=== PATIENT | female | born 2005 | race African-American/Black ===

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

== ENCOUNTER 2024-01-09 19:26 | Outpatient (REF) | payer MEDICAID, SELFPAY ==
--- OUTSIDE RECORDS SUMMARY | 2024-01-09 19:28 | XMS_ITS | Encounter Summary ---
Author Organization [facility] Address [address] [place] [address] Care Team Providers Care Medical Doctor Nuclear Medicine Name Role Phone Eli Auguste MD Primary Care Provider Encounter Details Date Type Department Care Team (Late st Contact Info) Description 06/06/[address] [facility] [place] [facility] Pathology & Laboratory Medicine - [address] [address] Outr Resulting Lab, Provider Social History Tobacco Use Types Packs/Day Years Used Date Smoking Tobacco: Never Assessed Sex and Gender Information Value Date Recorded Sex Assigned at Not on file Gender Identity Not on file Sexual Orientation Not on file documented as of this encounter Plan of Treatment Not on file documented as of this encounter Procedures Procedure Name Priority Date/Time Associated Diagnosis Comments ZZCOVID-19 TEST [facility] PCR Today 06/06/2021 11:39 EST COVID-19 TESTING Routine 06/06/2021 11:3 9 EST documented in this encounter Results * COVID-19 TEST [facility] PCR (06/06/2021 11:39 EST) Swab 06/06/2021 11:3 9 EST 06/06/2021 22:08 EST Provider Outr Resulting Lab MICROBIOLOGY - GENERAL ORDERABLES [facility] [address] [place] [address] * COVID-19 TESTING (06/06/2021 11:39 EST) COVID-19 rt-PCR Result Negative Negative 06/07/2021 13:59 EST [facility] Comment: This test has not been FDA cleared or approved. This test has been authorized by FDA under an EUA for use by authorized laboratories. This test has been authorized only for detection of nucleic acid from 2019-nCoV, not for any other viruses or pathogens. This test is only authorized for the duration of the declaration that circumstances exist justifying the authorization of emergency use of in vitro diagnostic tests for detection and/or diagnosis of 2019-nCoV under section 564(b)(1) of Act, 21 U.S.C ?? 360bbb-3(b) (1), unless the authorization is terminated or revoked sooner. Negative results do not preclude 2019-nCoV infection and should not be used as the sole basis for treatment or other patient management decisions. Negative results must be combined with clinical observations, patient history, and epidemiological information. Testing was performed using the candie SARS-CoV-2 assay ([employer] on the Candie 6800 System Performing Lab Candie 6800 [facility] 06/07/2021 13:59 EST [facility] Swab 06/06/2021 11:3 9 EST 06/06/2021 22:08 EST Provider Outr Resulting Lab MICROBIOLOGY - GENERAL ORDERABLES [facility] [address] [place] [address] documented in this encounter Visit Diagnoses Not on filedocumented in this encounter Care Teams Medical Doctor Nuclear Medicine Relationship Specialty Start Date End Date Eli Auguste MD [address] [place] [address] [place] [address] PCP - General Pediatrics - Primary Care 02/13/21 documented as of this encounter
--- OUTSIDE RECORDS SUMMARY | 2024-01-09 19:28 | XMS_ITS | Encounter Summary ---
Author Organization [facility] Address [address] [place] [address] Care Team Providers Care Director Card Name Role Phone Eli Auguste MD Primary Care Provider Reason for Visit * Reason Comments Procedure excision on back Encounter Details Date Type Department Care Team (Late st Contact Info) Description 07/18/2021 10:15 EST Office Visit [facility] Dermatology 3rd [address] [id number] Jose Davila MD [address] [place] [address], [address] [place] [address] Recurrent nevus of back (Primary Dx) Social History Tobacco Use Types Packs/Day Years Used Date Smoking Tobacco: Never Sex and Gender Information Value Date Recorded Sex Assigned at Not on file Gender Identity Not on file Sexual Orientation Not on file documented as of this encounter Patient Instructions * Patient Instructions* Marilou Vences MD - 07/18/2021 10:[address] [facility] EXCISIONAL WOUND CARE INSTRUCTIONS The DRESSING/BANDAID should remain in place for 24 hours. You may shower or bathe after 24 hours; remove the bandage and replace it after the shower. DISCOMFORT: Expect some discomfort. Extra-Strength Tylenol, taken as directed by the robotics specialist, will help relieve pain. If the pain is severe please call the office. BLEEDING: You may notice some blood on the edges of the dressing the first day - this is NORMAL. Ifthe bleeding soaks through the dressing, remove the dressing, and apply firm, steady pressure with a moist clean wash cloth for fifteen minutes. If the bleeding stops, redress the wound, if not, callour office at . ACTIVITY: Relax and limit your physical activity for the first 48 hours after surgery. Also, if thesurgery was on the face or scalp, keep your head elevated. Your provider may ask you to limit activity for a longer period of time. APPEARANCE: There may be swelling and bruising around the wound, especially near the eyes. Some redness is normal, but the wound should not be red, hot and tender. If the wound becomes increasingly inflamed, warm, or drains pus, please call our office. WOUND CARE: ?? Wash hands with soap and water before changing the dressing. ?? Change the dressing daily and when it becomes wet. Clean the wound daily with mild soap and water. You may gently loosen any crusts with a cotton swab. The wound may be slightly tender and may bleed a small amount. A small amount of discharge is normal. Apply a thin layer of sterile petroleum jelly over the wound. Cover the wound with a Telfa (non-stick) dressing or bandage. It is important to keep the wound covered. If your sutures require removal, you will receive specific instructions regarding when and where tohave them removed. CONTACT THE OFFICE IF YOU EXPERIENCE: ?? increased redness ?? warmth to touch ?? increased pain ?? drainage with a foul odor ?? rapid swelling of the wound ?? fever or chills Please call our office or . documented in this encounter Progress Notes * Marilou Vences MD - 07/18/2021 1015 EST Images from the original note were not included. LINEAR EXCISION PROCEDURE NOTE PATIENT INFORMATION: Jocelyn Conner 2005 DATE OF PROCEDURE: 07/18/2021 SURGEON: Jose Davila MD DRY CANS BACK TENDER: Marilou Vences MD PREOPERATIVE DIAGNOSIS: recurrent nevus LOCATION: Right upper back LESION SIZE: 0.5 cm x 0.5 cm MARGINS PER SIDE: 0.1 cm TOTAL EXCISION DIAMETER: 0.7 cm x 0.7 cm INDICATIONS: The indication, risks, benefits and alternatives to this procedure were discussed in detail with the patient and all questions were answered. The patient had no contraindications to surgery with local anesthesia. Informed consent was obtained in writing. PROCEDURE: Patient position: prone Anesthesia: 1% lidocaine with epinephrine 1:100,000 buffered with 8.4% NaHCO3 Prep: Chlorhexidine The patient was brought to the operative suite. The lesion was identified, prepped and draped in the usual sterile fashion. Following complete anesthesia, the skin was incised in a fusiform fashion to the level of the subcutis with a number 15 surgical blade. The wound was undermined in all directions with care to avoid functionally important nerves and vessels. Hemostasis was achieved with spot electrocoagulation. The wound edges were approximated with 4.0 Monocryl (poliglecaprone 25) buried interrupted sutures at the level of the dermis and subcutis. The epidermis was approximated with 4.0 Prolene (polypropylene). The final wound length was 3.2 centimeters. The wound edges were cleansed with peroxide and a sterile pressure dressing was applied over telfa and petrolatum. Verbal and written wound care instructions were given. The patient tolerated the procedure well and left the operating suite in excellent condition. The surgical specimen was submitted to pathology for histologic evaluation. POSTOPERATIVE DIAGNOSIS: recurrent nevus of right upper back FINAL PROCEDURE: Excision and Linear Repair BLOOD LOSS: minimal OPERATIVE TIME: 45 minutes COMPLICATIONS: none NOTE: none Marilou Vences MD, DENIA, MS PGY-2 Dermatology Pager [phone] 07/18/21 12:05 Attestation Statement: I saw and examined the patient with the resident/fellow. I agree with the findings and plan of care documented in the resident's/fellow's note. I was present for the entire procedure. Jose Davila MD Dermatology [facility] * Maral George MA - 07/18/2021 1015 EST Patient Education Topic: Wound Care Method: Demonstration and Handout Taught to: Family and Patient Barriers: None Outcomes: requires assistance and verbalized understanding Signature: MARAL GEORGE MA 07/18/2021 11:07 documented in this encounter Miscellaneous Notes * Result Encounter Note - Jose Davila MD - 07/18/2021 1015 EST Shimon Cheri, can you let Jocelyn know that her mole was benign and appears completely removed with the excision, no need for further treatment unless new concerns arise. * Result Encounter Note - Jose Alejandro Thurman MA - 07/18/2021 1015 EST Called patient and relayed excision results. Patient verbalized a good understanding and had no further questions at the time of the call. JOSE ALEJANDRO THURMAN MA 07/20/2021 13:02 documented in this encounter Plan of Treatment Not on file documented as of this encounter Procedures Procedure Name Priority Date/Time Associated Diagnosis Comments SURGICAL PATHOLOGY Routine 07/18/2021 11 :01 EST Recurrent nevus of back documented in this encounter Results * SURGICAL PATHOLOGY (07/18/2021 11:01 EST) Note to Patient The following pathology results have been interpreted by your pathologist and may be available to you before your health provider has had the opportunity to review them. Please allow time for your provider to receive these results and explore management options, if applicable. 07/20/2021 10:47 [facility] Final Diagnosis A. SKIN OF BACK, RIGHT UPPER, EXCISION: - Intradermal nevus, completely excised. 07/20/2021 10:47 [facility] Attestation By the signature below, the attending physician certifies that they have 1) personally conducted a gross and/or microscopic examination of the described specimen(s), and/or personally interpreted the results of laboratory testing of the described specimen(s), and 2) personally rendered or confirmed the above diagnosis. 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 Received in formalin labelled with proper patient identification (initials B, M) and right upper back is an unoriented excision of giles-pink skin (2.0 x 0.8 cm, excised to a depth of 0.7 cm). At the center of the ellipse is a giles-brown smooth round skin lesion 0.3 cm in greatest dimension. The specimen is inked, serially sectioned and submitted entirely as tips, reverse en face in A1 and 4 central sections in A2-A3. NELL GLASS(ASCP) 07/18/2021 15:05 07/20/2021 10:47 [facility] Performing Lab [facility] 07/20/2021 10:47 [facility] Scanned Images 07/20/2021 10:47 [facility] Tissue TISSUE SPECIMEN FROM SKIN / Unknown Collection, Other / Unknown 07/18/2021 11:01 EST 07/18/2021 14:14 EST Jose Davila MD PATHOLOGY ORDERABLES Performing Organization Address City/State/[facility] Co de Phone Number [facility] [address] [place] [address] documented in this encounter Visit Diagnoses Diagnosis Recurrent nevus of back- Primary Benign neoplasm of skin of trunk, except scrotum documented in this encounter Care Teams Director Card Relationship Specialty Start Date End Date Eli Auguste MD [address] [place] [id number] PCP - General Pediatrics - Primary Care 02/13/21 documented as of this encounter
--- OUTSIDE RECORDS SUMMARY | 2024-01-09 19:28 | XMS_ITS | Encounter Summary ---
Author Organization [facility] Address [address] [place] [address] Care Team Providers Care Panel Cutter Name Role Phone Alondra Rosales MD Primary Care Provider [phone] Eli Auguste MD Primary Care Provider [phone] Reason for Visit * Reason Onset Date Comments Appointment Related 02/03/2021 Encounter Details Date Type Department Care Team (Late st Contact Info) Description 02/03/2021 Telephone [facility]- [address] [address] Martinez Garcia MD [address] [place] [address], [address] [place] [phone] Appointment Related Social History Tobacco Use Types Packs/Day Years Used Date Smoking Tobacco: Never Assessed Sex and Gender Information Value Date Recorded Sex Assigned at Not on file Gender Identity Not on file Sexual Orientation Not on file documented as of this encounter Miscellaneous Notes * Telephone Encounter - Marguerite Montiel - 02/03/2021 1820 EDT Rimal PAS Message: Jocelyn called to cancel appointment with Martinez Garcia MD on 02/13 at 14:20 due to schedule conflict. Patient would like a call back to reschedule? Yes. documented in this encounter Plan of Treatment Not on file documented as of this encounter Visit Diagnoses Not on filedocumented in this encounter Care Teams Panel Cutter Relationship Specialty Start Date End Date Alondra Rosales MD [address] [place] [address] PCP - General 10/14/09 02/12/21 Eli Auguste MD [address] [place] [phone] PCP - General Pediatrics - Primary Care 02/13/21 documented as of this encounter
--- OUTSIDE RECORDS SUMMARY | 2024-01-09 19:28 | XMS_ITS | Continuity of Care Document ---
Author Organization [facility] Address [address] [place] [address] Care Team Providers Care Residential Building Inspector Name Role Phone Eli Auguste Primary Care Physician [phone] Encounter [facility] Date(s): 06/04/23 - 06/04/[address] [address] Discharge Disposition: Home or Self Care Attending Physician: Eli Auguste MD Admitting Physician: Eli Auguste MD Referring Physician: Eli Auguste MD Referring Physician: Ana Potter NP Allergies, Adverse Reactions, Alerts No Known Allergies Assessment and Plan Future Appointments Future Scheduled Tests Laboratory* Comprehensive Metabolic Panel 06/05/23 * Thyroid Stimulating Hormone 06/05/23 * Celiac Disease Comp Loíza STRATTON 06/05/23 * CBC w/o Diff 06/05/23 * Free T4 06/05/23 Immunizations Given and Recorded Vaccine Date Status Refusal Reason SARS-CoV-2 (COVID-19) mRNA BNT-162b2 vax 02/22/21 Recorded SARS-CoV-2 (COVID-19) mRNA BNT-162b2 vax 02/01/21 Recorded human papillomavirus vaccine 07/05/20 Recorded meningococcal ACWY, unspecified formulat 07/01/20 Recorded meningococcal ACWY, unspecified formulat 01/20/18 Recorded tetanus/diphth/pertuss (Tdap) adult/adol 09/15/15 Recorded diphtheria/tetanus/pertussis,acel/polio 06/09/09 R ecorded varicella virus vaccine 06/10/08 Recorded measles/mumps/rubella virus vaccine 06/10/08 Recor ded haemophilus b conjugate (PRP-T) vaccine 09/17/05 R ecorded haemophilus b conjugate (PRP-T) vaccine 04 R ecorded haemophilus b conjugate (PRP-T) vaccine 04 R ecorded haemophilus b conjugate (PRP-T) vaccine 04 R ecorded measles/mumps/rubella/varicella vaccine 07/02/05 R ecorded pneumococcal 7-valent vaccine 07/02/05 Recorded pneumococcal 7-valent vaccine 04/19/05 Recorded pneumococcal 7-valent vaccine 04 Recorded pneumococcal 7-valent vaccine 04 Recorded diphth/tetanus/pertussis,acel/hepB/polio 04 Recorded diphth/tetanus/pertussis,acel/hepB/polio 04 Recorded diphth/tetanus/pertussis,acel/hepB/polio 04 Recorded Medications cetirizine 10 mg oral tablet 10 mg = 1 tab, Oral, Daily, 0 Refill(s) Start Date: 10/26/21 Status: Ordered Flonase Allergy Relief 50 mcg/inh nasal spray 1 sprays, Nasal, Daily, shake well before using, # 9.9 mL, 0 Refill(s), Pharmacy: [facility], 37.55, kg, 06/04/23 10:30:00 EST, Weight Dosing Start Date: 06/04/23 Status: Ordered ondansetron 4 mg oral tablet, disintegrating 4 mg = 1 tab, Oral, every 8 hr, PRN as needed for nausea/vomiting, # 30 tab, 0 Refill(s), Pharmacy:[facility], 37.55, kg, 06/04/23 10:30:00 EST, Weight Dosing Start Date: 06/04/23 Status: Ordered Xulane 150 mcg-35 mcg/24 hr transdermal film, extended release 1 patches, Topical, every week, apply a new patch weekly for 3 weeks, remove for 1 week, then repeat cycle, # 9 EA, 4 Refill(s), Pharmacy: [facility] Start Date: 04/19/22 Status: Ordered Problem List Condition Confirmation Course Effective Dates Status H ealth Status Informant Acute urticaria Confirmed 09/09/20 Active Anxiety Confirmed 09/25/18 Active Chronic idiopathic urticaria Confirmed 06/06/21 Active 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 History of SARS-CoV-2 Confirmed 01/03/21 Active Iron deficiency Confirmed 06/06/21 Active Mild persistent asthma Confirmed 09/09/20 Active Mixed anxiety and depressive disorder Confirmed 09/09/20 Active Encounter for IUD insertion Confirmed Active Seasonal allergy Confirmed 06/06/21 Active Results Laboratory List Name Date SARS-CoV-2 (COVID-19)/Flu/RSV ([facility] ) (COVID-19/Flu/RSV ([facility])) 06/04/23 Most recent to oldest [Reference Range]: 1 SARS-CoV-2(Covid19)PCR([facility] COVFLURSV) [Negative] Negative (06/04/23 11:50 AM) Flu A ([facility] COVFLURSV) [Negative] Nega tive (06/04/23 11:50 AM) RSV ([facility] COVFLURSV) [Negative] Positi ve *ABN* (06/04/23 11:50 AM) Flu B ([facility] COVFLURSV) [Negative] Nega tive (06/04/23 11:50 AM) Orders for Microbiology Reports Name Date Throat Culture 06/04/23 Microbiology Reports TEST:Throat Culture STATUS:Order in Progress BODY SITE: SOURCE:Throat COLLECTED DATE/TIME:06/04/23 2:13 PM PRELIMINARY REPORT [employer] B strep recovered Social History Social History Type Response Tobacco Never tobacco user T obacco Use:. Sex Female Patient Care team information Care Team Personnel Name: Eli Auguste MD Position: Physician Member Role: Informed Provider Address: Address: [address] Care Team Related Persons Name: DECLINED, DECLINED
--- OUTSIDE RECORDS SUMMARY | 2024-01-09 19:28 | XMS_ITS | Referral Summary ---
Author Organization [facility] Address [address] [place] [address] Care Team Providers Care Wheel Mill Operator Name Role Phone Eli Auguste MD Primary Care Provider [phone] Allergies No known active allergies Medications Medication Sig Dispensed Refills Start Date End Date Status ferrous sulfate (IRON ORAL) Take by mouth daily. Active ergocalciferol, vitamin D2, (VITAMIN D ORAL) Take by mouth daily. Active spironolactone (ALDACTONE) 50 mg tabletIndications:Acn e vulgaris Take 1 Tablet by mouth at bedtime. 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
--- OUTSIDE RECORDS SUMMARY | 2024-01-09 19:28 | XMS_ITS | Continuity of Care Document ---
Author Organization [facility] Address [address] [place] [address] Care Team Providers Care Global Supply Chain Vice President Name Role Phone Shanti Koroma Primary Care Physician Encounter [facility] Date(s): 11/28/23 - 11/28/23 [facility] [address] [place] [address] Discharge Disposition: Home or Self Care Attending Physician: Shanti Koroma MD Admitting Physician: Shanti Koroma MD Referring Physician: Shanti Koroma MD Allergies, Adverse Reactions, Alerts No Known Medication Allergies Substance Reaction Severity Status Seasonal Moderate Active Assessment and Plan Future Appointments Immunizations Given and Recorded Vaccine Date Status [...] diphth/tetanus/pertussis,acel/hepB/polio 04 Recorded diphth/tetanus/pertussis,acel/hepB/polio 04 Recorded Medications cholecalciferol 2000 intl units oral capsule 50 mcg 1 cap, Oral, Daily, # 90 cap, 0 Refill(s), Pharmacy: [email or web address], 149.8, cm, 06/13/23 10:56:00 EST, Height, 37.5, kg, 06/17/23 15:37:00 EST, Weight Dosing Start Date: 06/17/23 Stop Date: 09/15/23 Status: Ordered cyproheptadine 4 mg oral tablet 4 mg = 1 tab, Oral, TID, # 90 tab, 1 Refill(s), Pharmacy: [email or web address], 149.8, cm, 06/13/2409:56:00 EST, Height, 37.5, kg, 06/17/23 15:37:00 EST, Weight Dosing Start Date: 06/27/23 Stop Date: 08/26/23 Status: Ordered FeroSul 325 mg (65 mg elemental iron) oral tablet 325 mg = 1 tab, Oral, Daily, # 30 tab, 2 Refill(s), Pharmacy: [email or web address], 149.8, cm, 06/13/23 10:56:00 EST, Height, 37.5, kg, 06/17/23 15:37:00 EST, Weight Dosing Start Date: 06/18/23 Status: Ordered Flonase Allergy Relief 50 mcg/inh nasal spray 1 sprays, Nasal, Daily, shake well before using, # 9.9 mL, 0 Refill(s), Pharmacy: [email or web address], 37.55, kg, 06/04/23 10:30:00 EST, Weight Dosing Start Date: 06/04/23 Status: Ordered ondansetron 4 mg oral tablet, disintegrating 4 mg = 1 tab, Oral, every 8 hr, PRN as needed for nausea/vomiting, # 30 tab, 0 Refill(s), Pharmacy:[email or web address], 37.55, kg, 06/04/23 10:30:00 EST, Weight Dosing Start Date: 06/04/23 Status: Ordered penicillin V potassium 500 mg oral tablet 500 mg = 1 tab, Oral, BID, # 20 tab, 0 Refill(s), Pharmacy: [email or web address], 149.8, cm, 06/13/23 10:56:00 EST, Height, 39.55, kg, 10/14/23 12:50:00 EDT, Weight Dosing Start Date: 10/14/23 Stop Date: 10/24/23 Status: Ordered Xulane 150 mcg-35 mcg/24 hr transdermal film, extended release 1 patches, Topical, every week, apply a new patch weekly for 3 weeks, remove for 1 week, then repeat cycle, # 9 EA, 4 Refill(s), Pharmacy: [email or web address], 149.8, cm, 06/13/23 10:56:00 EST, Height, 37.5, kg, 06/13/23 11:00:00 EST, Weight Dosing Start Date: 06/13/23 Status: Ordered Problem List Condition Confirmation Course Effective Dates Status H ealth Status Informant Anxiety Confirmed 09/25/18 Active Chronic idiopathic urticaria Confirmed 06/06/21 Active 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 Social History Social History Type Response Tobacco Never tobacco user T obacco Use:. Sex Female Patient Care team information Care Team Personnel Name: Shanti Koroma MD Position: Physician Member Role: Primary Care Physician Address: Address: [address] [place] [address] [place], [place] [address] Name: Eli Auguste MD Position: Physician Member Role: Informed Provider Address: Address: [facility] [address] [place], [place] [address] Care Team Related Persons Name: NENA BARKER Address: [address] [place], [place] [id number] Name: NENA BARKER Address: [address] [place], [id number] Name: ELADIA RODRIGUEZ Name: ELADIA RODRIGUEZ Address: [address] [id number] Address: Home [address] [place] [phone] Address: Mailing [address] [place] [phone] Name: ELADIA RODRIGUEZ Address: Alternate [address] [place] [phone] Address: Home [address] [place] [phone] Address: Mailing [address] [place] [phone]
--- OUTSIDE RECORDS SUMMARY | 2024-01-09 19:28 | XMS_ITS | Encounter Summary ---
Author Organization [facility] Address [address] [place] [address] Care Team Providers Care Concessionist Name Role Phone Alondra Rosales MD Primary Care Provider Encounter Details Date Type Department Care Team (Latest Contact Info) Description 04/20/2014 8:47 EST - 04/20/2014 23:59 EST Hospital Encounter [address] [address] Unknown, Provider, Discharge Disposition: Home or Self Care Social History Tobacco Use Types Packs/Day Years Used Date Smoking Tobacco: Never Assessed Sex and Gender Information Value Date Recorded Sex Assigned at Not on file Gender Identity Not on file Sexual Orientation Not on file documented as of this encounter Discharge Disposition Disposition Code Departure Means Destination Home or Self Half-Way documented in this encounter Plan of Treatment Not on file documented as of this encounter Visit Diagnoses Not on filedocumented in this encounter Care Teams Concessionist Relationship Specialty Start Date End Date Alondra Rosales MD [address] [place] [address] PCP - General 10/14/09 02/12/21 documented as of this encounter
--- OUTSIDE RECORDS SUMMARY | 2024-01-09 19:28 | XMS_ITS | Encounter Summary ---
Author Organization [facility] Address [address] [place] [address] Care Team Providers Care Epic Beacon Specialists Name Role Phone Eli Auguste MD Primary Care Provider Encounter Details Date Type Department Care Team (Late st Contact Info) Description 02/15/2021 Lab Requisition [facility] - [address] [address] Outr Resulting Lab, Provider Social History Tobacco [...] Procedure Name Priority Date/Time Associated Diagnosis Comments CHLAMYDIA/N. GONORRHOEAE AMPLIFIED NUCLEIC ACID Routine 02/15/2021 16:28 EDT documented in this encounter Results * CHLAMYDIA/N. GONORRHOEAE AMPLIFIED RNA (02/15/2021 16:28 EDT) Neisseria gonorrhoeae Result Negative Negative 02/16/2021 14:04 EDT [facility] Chlamydia trachomatis Result Negative Negative 02/16/2021 14:04 EDT [facility] Swab ENTIRE VAGINA / Unknown 02/15/2021 16:28 EDT 02/15/2021 21:00 EDT Provider Outr Resulting Lab MICROBIOLOGY - GENERAL ORDERABLES [facility] [address] [place] [address] documented in this encounter Visit Diagnoses Not on filedocumented in this encounter Care Teams Epic [facility]acon Specialists Relationship Specialty Start Date End Date Eli Auguste MD [address] [place] [address] [place] [id number] PCP - General Pediatrics - Primary Care 02/13/21 documented as of this encounter
--- OUTSIDE RECORDS SUMMARY | 2024-01-09 19:28 | XMS_ITS | Continuity of Care Document ---
Author Organization [facility] Address [address] [place] [address] Care Team Providers Care Contract Administrative Assistant Name Role Phone Eli Auguste Primary Care Physician Encounter [facility] Date(s): 06/13/23 - 06/13/23 [facility] [address] [place] [address] Discharge Disposition: Home or Self Care Attending Physician: Daria Howell MD Admitting Physician: Daria Howell MD Referring Physician: Eli Auguste MD Allergies, Adverse Reactions, Alerts No Known Allergies Assessment and Plan Future Appointments Diagnostic Tests Pending * Celiac Disease [facility] 06/13/23 Immunizations Given and Recorded Vaccine Date Status [...] diphth/tetanus/pertussis,acel/hepB/polio 04 Recorded diphth/tetanus/pertussis,acel/hepB/polio 04 Recorded Medications Flonase Allergy Relief 50 mcg/inh nasal spray 1 sprays, Nasal, Daily, shake well before using, # 9.9 mL, 0 Refill(s), Pharmacy: [facility], 37.55, kg, 06/04/23 10:30:00 EST, Weight Dosing Start Date: 06/04/23 Status: Ordered ondansetron 4 mg oral tablet, disintegrating 4 mg = 1 tab, Oral, every 8 hr, PRN as needed for nausea/vomiting, # 30 tab, 0 Refill(s), Pharmacy:[facility], 37.55, kg, 06/04/23 10:30:00 EST, Weight Dosing Start Date: 06/04/23 Status: Ordered penicillin V potassium 500 mg oral tablet 500 mg = 1 tab, Oral, BID, # 20 tab, 0 Refill(s), Pharmacy: [facility], 37.55, kg, 06/04/23 10:30:00 EST, Weight Dosing Start Date: 06/05/23 Stop Date: 06/15/23 Status: Ordered Xulane 150 mcg-35 mcg/24 hr transdermal film, extended release 1 patches, Topical, every week, apply a new patch weekly for 3 weeks, remove for 1 week, then repeat cycle, # 9 EA, 4 Refill(s), Pharmacy: [facility], 149.8, cm, 06/13/23 10:56:00 EST, Height, [...] 09/09/20 Active Seasonal allergy Confirmed 06/06/21 Active Vitamin D deficiency Confirmed Active Results Laboratory List Name Date CBC w/o Diff (CBC) 06/13/23 Comprehensive Metabolic Panel (CMP) Free T4 06/13/23 Iron Level and TIBC 06/13/23 Thyroid Stimulating Hormone (TSH) 06/13/23 Vitamin D, 25-OH Total [facility] (25-Hydroxyvi tamin D2 and D3 [facility]) 06/13/23 Most recent to oldest [Reference Range]: 1 WBC [5.0-10.0 x10^3/mcL] 5.7 x10^3/mcL (06/13/23 12:25 PM) RBC [4.1-5.3 x10^6/mcL] 4.9 x10^6/mcL (06/13/23 12:25 PM) BUN [7-18 mg/dL] 13 mg/dL (06/13/23 12:25 PM) Glucose Level [74-106 mg/dL] 83 mg/dL (06/13/23 12:25 PM) Potassium Level [3.5-5.1 mmol/L] 3.8 mmo l/L (06/13/23 12:25 PM) MCV [80.0-96.0 fL] 85.5 fL (06/13/23 12:25 PM) T4 Free [0.76-1.46 ng/dL] 1.02 ng/dL (06/13/23 12:25 PM) AST [15-37 unit/L] 18 unit/L (06/13/23 12:25 PM) ALT [14-59 unit/L] 20 unit/L (06/13/23 12:25 PM) MCHC [31.0-35.0 g/dL] 32.6 g/dL (06/13/23 12:25 PM) Sodium Level [136-145 mmol/L] 138 mmol/L (06/13/23 12:25 PM) Hct [37.0-47.0 %] 41.7 % (06/13/23 12: PM) Calcium Level [8.5-10.1 mg/dL] 9.7 mg/dL (06/13/23 PM) Albumin Level [3.4-5.0 g/dL] 4.4 g/dL (06/13/23 PM) Protein Total [6.4-8.2 g/dL] 8.6 g/dL *HI* (06/13/23 PM) Iron Sat [20-55 %] 6 % *LOW* (06/13/23 PM) MCH [26.0-32.0 pg] 27.9 pg (06/13/23 PM) Bilirubin Total [0.2-1.0 mg/dL] 0.5 mg/d L (06/13/23 PM) Hgb [12.0-16.0 g/dL] 13.6 g/dL (06/13/23 PM) Alk Phos [46-146 unit/L] 64 unit/L (06/13/23 PM) Platelets [130-450 x10^3/mcL] 308 x10^3/ mcL (06/13/23: PM) CO2 [21-32 mmol/L] 27 mmol/L (06/13/23 PM) TIBC [250-450 mcg/dL] 505 mcg/dL *HI* (06/13/23 PM) TSH [0.358-3.740 mcIntlUnit/mL] 0.998 mc IntlUnit/mL (06/13/23 PM) Iron [50-170 mcg/dL] 28 mcg/dL *LOW* (06/13/23 PM) eGFR Non-AA [>=60] 128 (06/13/23 12:25 PM) eGFR AA [>=60] 128 (06/13/23 12:25 PM) Chloride Level [98-107 mmol/L] 101 mmol/ L (06/13/23: PM) RDW-CV [11.5-14.5 %] 13.5 % (2/1/24 12:25 PM) Creatinine Level [0.55-1.02 mg/dL] 0.69 mg/dL (06/13/23 12:25 PM) Vitamin D, 25-OH, Total [facility] [30-100 ng/m L] 28 ng/mL 1 *LOW* (06/13/23 12:25 PM) 1Result Comment: Vitamin D 25,OH Interpretive Ranges: Deficiency: <10.0 ng/mL Insufficiency: 10.0 - 30.0 ng/mL Sufficiency: 30.0 - 100.0 ng/mL Toxicity: >100.0 ng/mL Test performed [place] [address] Social History Social History Type Response Tobacco Never tobacco user T obacco Use:. Sex Female Patient Care team information Care Team Personnel Name: Eli Auguste MD Position: Physician Member Role: Informed Provider Address: Address: [address] Care Team Related Persons Name: ELADIA RODRIGUEZ
--- OUTSIDE RECORDS SUMMARY | 2024-01-09 19:28 | XMS_ITS | Encounter Summary ---
Author Organization [facility] Address [address] [place] [address] Care Team Providers Care Bug Trimmer Name Role Phone Eli Auguste MD Primary Care Provider [phone] Reason for Visit * Reason Comments New Patient Visit Sporadic rash feet-a ll over. Spot check posterior shoulder * Consult (Routine) - Authorization Not Required Specialty Diagnoses / Procedures [facility] D[facility] Diagnoses Rash and other nonspecific skin eruption Eli Auguste MD [address] [place] [phone] [place] [address] [address] [place] [address] Referral ID Status Reason Start Date Expiration Date Visits Requested Visits Authorized [id number] Authorization Not Required 1 1 Encounter Details Date Type Department Care Team (Late st Contact Info) Description 06/09/2021 10:00 EST Office Visit [facility] Dermatology 3rd Floor [address] [address] Jose Davila MD [address] [place] [address], [address] [place] [phone] Chronic idiopathic urticaria (Primary Dx); Nevus of back; Acne vulgaris Social History Tobacco Use Types Packs/Day Years Used Date Smoking Tobacco: Never Sex and Gender Information Value Date Recorded Sex Assigned at Not on file Gender Identity Not on file Sexual Orientation Not on file documented as of this encounter Ordered Prescriptions Prescription Sig Dispensed Refills Start Date End Da te spironolactone (ALDACTONE) 50 mg tabletIndications:Acne vulgaris Take 1 Tablet by mouth at bedtime. 90 Tablet 3 06/09/2021 cetirizine (ZYRTEC) 10 mg tabletIndications:Chronic idiopathic urticaria Take 1 Tablet by mouth 2 times daily for 90 days. 60 Tablet 11 06/09/2021 09/07/2021 documented in this encounter Progress Notes * Jose Alejandro Thurman MA - 06/09/2021 1000 EST Review of Symptoms Constitutional: Negative for fatigue, fever and unexpected weight change. HENT: Negative for mouth sores. Eyes: Negative for pain. Respiratory: Negative for cough and shortness of breath. Cardiovascular: Negative for chest pain and palpitations. Gastrointestinal: Negative for abdominal pain, blood in stool, constipation, diarrhea, nausea and vomiting. Genitourinary: Negative for dysuria, frequency and hematuria. Musculoskeletal: Negative for myalgias, joint swelling, arthralgias and muscle stiffness in the morning. Skin: Negative for rash. Neurological: Negative for numbness and headaches. Endo/Heme/Allergies: Does not bruise/bleed easily. Psychiatric/Behavioral: Negative for sleep disturbance. The patient is not nervous/anxious. JOSE ALEJANDRO THURMAN MA 06/09/2021 10:04 * Shamir Delgado MD - 06/09/2021 1000 EST Images from the original note were not included. Dermatology Outpatient Visit Note Chief Complaint Patient presents with ??? New Patient Visit Sporadic rash feet-all over. Spot check posterior shoulder Jocelyn Conner is a 16 y.o. female who presents for new evaluation and treatment for the above stated complaint. Will get rash on feet and back, will either spread up from feet or down from back. Ofnote, rash is not present today. Is painful and itchy. Will last for 30 min to several hours. No identified triggers. Has historically taken zyrtec, benadryl, and hydroxyzine at various times, which may help the rash and itching. Denies any significant facial swelling or difficulty breathing. Denies any significant fatigue, constipation, joint pain, or other rash. For full Medical, Surgical, Family, and Social histories, please see the History section of this encounter in the electronic chart. - Maternal history of cancerous skin lesions - No family history of eczema, hives, or known autoimmune disease OBJECTIVE VS: There were no vitals taken for this visit. Physical Exam: Well-appearing, no apparent distress, alert and interactive Exam of the skin reveals: - Scattered erythematous papules on back consistent with acne - 1-2 mm homogeneous brown papule in middle of scar from previous excisional biopsy Otherwise the face, scalp, ears, neck, chest, back, abdomen, arms, hands, legs, buttocks and feet are clear of concerning lesions. Deferred exam of groin today. ASSESSMENT AND PLAN Chronic Idiopathic Urticaria Discussed that her raised, intermittent rash with dermatographia is most likely due to chronic idiopathic urticaria. Does not describe any facial swelling or difficulty breathing or have an signs/symptoms concerning for angioedema. She has not identified any triggers. 1) May take zyrtec 10 mg in AM and 10 mg in PM 2) May take 12.5-25 mg of benadryl at nighttime for PM symptoms 3) May consider adding famotidine if not well controlled on H1 antihistamines Acne vulgaris - uncontrolled on back Education was provided on acne and extensive discussion held regarding treatment options, specifically my typical step-fernandez approach. Recommended the following regimen: - Neutrogena or Cetaphil oil free cleanser wash nightly - Tretinoin 0.025% cream nightly as tolerated, reviewed potential for dryness - Benzaclin 1-5% gel each morning - Benzoyl peroxide 10% shower wash for chest and back, reviewed potential for bleaching of clothes. - Spironolactone 50 mg by mouth nightly. Side effects including increased urinary frequency, lightheadedness, breast tenderness, and menstrual irregularity/spotting were reviewed. Nevus on back Nevus removed on back several years ago. Pathology was sent to this office at that time, nevus was found to be benign. The nevus irritates her back and would like it removed. Will schedule for futurevisit. Education regarding the ABCDEs of melanoma was provided. Sun protection and avoidance was discussed. They were advised to return if there are any changes in size, shape, or color to a mole. Shamir Delgado MD Pediatric Resident, PGY-3 Pager #[phone] (on cortex) 06/09/2021 10:28 Attestation Statement: I saw and examined the patient with the resident/fellow. I agree with the findings and plan of care documented in the resident's/fellow's note. Jose Davila MD Dermatology [facility] documented in this encounter Plan of Treatment Not on file documented as of this encounter Visit Diagnoses Diagnosis Chronic idiopathic urticaria- Primary Idiopathic urticaria Nevus of back Benign neoplasm of skin of trunk, except scrotum Acne vulgaris Other acne documented in this encounter Historical Medications * This list may reflect changes made after this encounter. Medication Sig Dispensed Refills Start Date End Date ergocalciferol, vitamin D2, (VITAMIN D ORAL) Take by mouth daily. ferrous sulfate (IRON ORAL) Take by mouth daily. added in this encounter Care Teams Bug Trimmer Relationship Specialty Start Date End Date Eli Auguste MD [address] [place] [address] [place] [address] PCP - General Pediatrics - Primary Care 02/13/21 documented as of this encounter
--- OUTSIDE RECORDS SUMMARY | 2024-01-09 19:28 | XMS_ITS | Clinical Summary ---
Author Organization [facility] Address [address] [place] [address] Care Team Providers Care Vulcanized Fiber Unit Operator Name Role Phone Eli Auguste MD Primary Care Provider Allergies No known active allergies Medications Medication [...] on file Sexual Orientation Not on file Obstetrics History Plan of Treatment Health Maintenance Due Date Last Done Comments Hepatitis C Screen 2004 COVID-19 Vaccine (2022-24 season) 2023 Hepatitis B Vaccine (1 of 3 - 19+ 3-dose series) 05/11 Care Teams Vulcanized Fiber Unit Operator Relationship Specialty Start Date End Date Eli Auguste MD [address] [place] [address] [place] [address] PCP - General Pediatrics - Primary Care 02/13/21
--- OUTSIDE RECORDS SUMMARY | 2024-01-09 19:28 | XMS_ITS | Encounter Summary ---
Author Organization [facility] Address [address] [place] [address] Care Team Providers Care Academy Education Director Name Role Phone Unavailable Primary Care Provider Unavailabl e Encounter Details Date Type Department Care Team (Late st Contact Info) Description 10/11/2009 Abstract [facility] - [place] [place] [address] Serge Stinson MD Idiopathic toewalking Social History Tobacco Use Types Packs/Day Years Used Date Smoking Tobacco: Never Assessed Sex and Gender Information Value Date Recorded Sex Assigned at Not on file Gender Identity Not on file Sexual Orientation Not on file documented as of this encounter Plan of Treatment Not on file documented as of this encounter Visit Diagnoses Diagnosis Idiopathic toewalking Abnormality of gait documented in this encounter
--- OUTSIDE RECORDS SUMMARY | 2024-01-09 19:28 | XMS_ITS | Continuity of Care Document ---
Author Organization [facility] Address [address] [place] [address] Care Team Providers Care Fios Line Installer Name Role Phone Shanti Koroma Primary Care Physician [phone] Encounter [facility] Date(s): 12/17/23 - 12/17/[address] [address] [place] Encounter Diagnosis Procedure and treatment not carried out due to patient leaving prior to being seen by health care provider(Final) - Discharge Disposition: Left Without Being Seen Attending Physician: Brandon Bowling MD Admitting Physician: Brandon Bowling MD Allergies, Adverse Reactions, Alerts No Known [...] Daily, # 90 cap, 0 Refill(s), Pharmacy: [facility], 149.8, cm, 06/13/23 10:56:00 EST, Height, 37.5, kg, 06/17/23 15:37:00 EST, Weight Dosing Start Date: 06/17/23 Stop Date: 09/15/23 Status: Ordered cyproheptadine 4 mg oral tablet 4 mg = 1 tab, Oral, TID, # 90 tab, 1 Refill(s), Pharmacy: [facility], 149.8, cm, 06/13/2409:56:00 EST, Height, 37.5, kg, 06/17/23 15:37:00 EST, Weight Dosing Start Date: 06/27/23 Stop Date: 08/26/23 Status: Ordered FeroSul 325 mg (65 mg elemental iron) oral tablet 325 mg = 1 tab, Oral, Daily, # 30 tab, 2 Refill(s), Pharmacy: [facility], 149.8, cm, 06/13/23 10:56:00 EST, Height, 37.5, kg, 06/17/23 15:37:00 EST, Weight Dosing Start Date: 06/18/23 Status: Ordered Flonase Allergy Relief 50 mcg/inh nasal spray 1 sprays, Nasal, Daily, shake well before using, # 9.9 mL, 0 Refill(s), Pharmacy: [facility], 37.55, kg, 06/04/23 10:30:00 EST, Weight Dosing Start Date: 06/04/23 Status: Ordered ondansetron 4 mg oral tablet, disintegrating 4 mg = 1 tab, Oral, every 8 hr, PRN as needed for nausea/vomiting, # 30 tab, 0 Refill(s), Pharmacy:[facility], 37.55, kg, 06/04/23 10:30:00 EST, Weight Dosing Start Date: 06/04/23 Status: Ordered Xulane 150 mcg-35 mcg/24 hr transdermal film, extended release 1 patches, Topical, every week, apply a new patch weekly for 3 weeks, remove for 1 week, then repeat cycle, # 9 EA, 4 Refill(s), Pharmacy: [facility], 149.8, cm, 06/13/23 10:56:00 EST, Height, 37.5, kg, 06/13/23 11:00:00 EST, Weight Dosing Start Date: 06/13/23 Status: Ordered Mental Status 12/17/23 Eye Opening Response [place] Spontaneous ly Best Verbal Response [place] Oriented Best Motor Response Es Obeys comman ds Es Coma Score 15 Problem List Condition Confirmation Course Effective Dates Status H ealth Status Informant Anxiety Confirmed 09/25/18 Active Chronic idiopathic urticaria Confirmed 06/06/21 Active 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 Iron deficiency Confirmed 06/06/21 Active Mixed anxiety and depressive disorder Confirmed 09/09/20 Active Seasonal allergy Confirmed 06/06/21 Active Sore throat Confirmed Active Strep throat Confirmed Active Vitamin D deficiency Confirmed Active Vital Signs Most recent to oldest [Reference Range]: 1 Heart Rate Monitored [60-100 bpm] 84 bpm (12/17/23 8:19 PM) Respiratory Rate [12-24 br/min] 20 br/mi n (12/17/23 8:19 PM) Blood Pressure [90-140/60-90 mmHg] 112/8 4mmHg (12/17/23 8:19 PM) Mean Arterial Pressure, Cuff [65-140 mmH g] 93 mmHg (12/17/23 8:19 PM) Weight 39.01 kg (12/17/23 8:19 PM) Weight Dosing 39.010 kg (12/17/23 8:19 PM) Weight Percentile 0.04 1 (12/17/23 8:19 PM) 1Result Comment: ^~:!Percentile Source -[facility] Social History Social History Type Response Tobacco Never tobacco user T obacco Use:. Sex Female Patient Care team information Care Team Personnel Name: Shanti Koroma MD Position: Physician Member Role: Primary Care Physician Address: Address: [address] [place], [place] [address] Name: Eli Auguste MD Position: Physician Member Role: Informed Provider Address: Address: [address] Care Team Related Persons Name: NENA BARKER Address: [address] [place], [phone] Name: NENA BARKER Address: [address] [place], [place] [id number] Name: ELADIA RODRIGUEZ Name: ELADIA RODRIGUEZ Address: [address] [id number] Address: Home [address] [place] [phone] Address: Mailing [address] [place] [phone] Name: ELADIA RODRIGUEZ Address: [address] [phone] Address: Home [address] [place] [phone] Address: Mailing [address] [place] [phone]
--- OUTSIDE RECORDS SUMMARY | 2024-01-09 19:28 | XMS_ITS | Encounter Summary ---
Author Organization [facility] Address [address] [place] [address] Care Team Providers Care Learning Disabilities Teacher Name Role Phone Alondra Rosales MD Primary Care Provider [phone] Encounter Details Date Type Department Care Team (Late st Contact Info) Description 04/20/2014 Results Only [facility] [phone] Jaycob Farfan MD [address] [place] [address] Social History Tobacco Use Types Packs/Day Years Used Date Smoking Tobacco: Never Assessed Sex and Gender Information Value Date Recorded Sex Assigned at Not on file Gender Identity Not on file Sexual Orientation Not on file documented as of this encounter Plan of Treatment Not on file documented as of this encounter Procedures Procedure Name Priority Date/Time Associated Diagnosis Comments SURGICAL PATHOLOGY Routine 04/20/2014 9:30 EST documented in this encounter Results * SURGICAL PATHOLOGY (04/20/2014 9:30 EST) Pathology Report: SURGICAL PATHOLOGY REPORT Reports generated via electronic interface contain original data; however they are lacking the format of the original report. Caution should be taken when reading/interpret ing unformatted reports. Name: ? LUCERO, JOCELYN ? Accession #: ? [id number] ? : ? 2005 (Age: 8) ??F ? Collect Date: ? 04/20/2014 ? Location: ? [facility] ? Receive Date: ? 04/21/2014 ? Provider: JAYCOB FARFAN MD Copy to: ? Final Pathologic Diagnosis: SKIN OF BACK, MID UPPER, SHAVE BIOPSY: - Melanocytic nevus, intradermal type, with congenital features. ?? - Nevus present focally at base of shave biopsy specimen. ?? Microscopic Description: Sections are of a papule with mild epidermal hyperplasia and hyperkeratosis. There is a proliferation of melanocytes within the dermis. ??The proliferation consists of nests, cords, and strands that diminish in size with descent into the dermis. ??The melanocytes are slightly enlarged but generally have round-oval nuclei and a moderate amount of cytoplasm. ??The melanocytes show director data maturation. ??(Dr. Serrano)/[facility] Document reviewed and electronically signed by: REJI SERRANO MD Report ??Date: 04/22/2014 16:31 By the signature above, the attending physician certifies that he/she has personally conducted a gross and/or microscopic examination of the described specimens and rendered or confirmed the above diagnosis. Specimen(s) Received: Mid upper back lesion Clinical History: Lesion Gross Description: ? Received in formalin labelled with proper patient identification (initials B, M) and mid upper back is a shave biopsy of giles skin (0.3 x 0.3 x 0.1 cm). There is an eccentric giles-brown macule with irregular borders that measures 0.2 x 0.1 cm. ??Submitted intact in 1. Dariela Bower 04/21/2014 10:41 AM End of Report [facility] 04/20/2014 9:30 EST 04/21/2014 9:30 EST Jaycob Farfan MD PATHOLOGY ORDERABL ES [facility] [address] [place] [address] documented in this encounter Visit Diagnoses Not on filedocumented in this encounter Care Teams Learning Disabilities Teacher Relationship Specialty Start Date End Date Alondra Rosales MD [address] [place] [id number] PCP - General 10/14/09 02/12/21 documented as of this encounter
--- OUTSIDE RECORDS SUMMARY | 2024-01-09 19:28 | XMS_ITS | Encounter Summary ---
Author Organization [facility] Address [address] [place] [address] Care Team Providers Care Brand Recorder Name Role Phone Eli Auguste MD Primary Care Provider [phone] Reason for Visit * Reason Comments Other consult T&A * Referral (Routine) - Receiving Office to Obtain Authorization Specialty Diagnoses / Procedures [facility] Referred To Contact Otolaryngology Diagnoses Other chronic diseases of tonsils and adenoids Eli Auguste MD [address] [place] [phone] [place] [address] [place] [id number] Referral ID Status Reason Start Date Expiration Date Visits Requested Visits Authorized [id number] Receiving Office to Obtain Authorization 1 1 Encounter Details Date Type Department Care Team (Late st Contact Info) Description 02/13/2021 14:20 EDT Office Visit [facility] ENT- Main [address] [id number] Martinez Garcia MD [address] [place] [address], [address] [place] [address] Chronic tonsillitis (Primary Dx) Social History Tobacco Use Types Packs/Day Years Used Date Smoking Tobacco: Never Assessed Sex and Gender Information Value Date Recorded Sex Assigned at Not on file Gender Identity Not on file Sexual Orientation Not on file documented as of this encounter Progress Notes * Martinez Garcia MD - 02/13/2021 1420 EDT Consultation/ New Patient Evaluation Pediatric Otolaryngology Date of Service: 02/13/2021 Provider: Martinez Garcia MD Chief Complaint Patient presents with ??? Other consult T&A Eli Auguste has requested that I see Jocelyn Conner in consultation regarding tonsillectomy. History of Present Illness: Jocelyn Conner is a 15 y.o. year old female who comes in today for evaluation of tonsillectomy. She has had a 4-5 episodes of a sore throat since May. The last one was probably a week or so ago. They last for several days. She is not received any antibiotics or any of her episodes. She does have some tonsil stone issues also. Her throat feels fine today. and delivery: Full-term Past Medical History: No past medical history on file. Asthma Surgeries: No past surgical history on file. Medications: No current outpatient medications on file prior to visit. No current facility-administered medications on file prior to visit. ALLERGIES: No Known Allergies Social History: Pediatric History Patient Parents/Guardians ??? Clarisse Conner (Mother/Guardian) ??? Vinod Conner (Step parent/Guardian) Other Topics Concern ??? Not on file Social History Narrative ??? Not on file Family History: Review of Systems: General: Healthy Respiratory: Asthma Allergic: None known GI: No diarrhea constipation Neurologic: No seizures Cardiac: Normal : Normal Endocrine: Normal growth Hematology: No bleeding disorders Dental: Routine care Psychiatric: Normal Musculoskeletal: Normal Vision: No glasses Skin: No rashes PHYSICAL EXAMINATION Healthy alert cooperative 15-year-old well-nourished in no distress Voice is normal today Head and face inspection and palpation are both normal salivary glands are normal today facial strength is normal external ear nose all normal today Eyes are normal today Otoscopy both ear canals eardrums and middle ear spaces are normal Nose midline septum normal turbinates without discharge Lips teeth and gums all normal for her age Oral cavity oropharynx reveals 1-2+ tonsils Palpation the neck feels no adenopathy or masses Encounter Diagnoses Name Primary? Chronic tonsillitis Yes Assessment and Plan: Jocelyn was seen today for other. Diagnoses and all orders for this visit: Chronic tonsillitis Chronic sore throat/tonsillitis. She has had no treated with antibiotics. Next time she is ill they will call and we will examine her when she is at her worst. Martinez Garcia MD documented in this encounter Plan of Treatment Not on file documented as of this encounter Visit Diagnoses Diagnosis Chronic tonsillitis- Primary documented in this encounter Care Teams Brand Recorder Relationship Specialty Start Date End Date Eli Auguste MD [address] [place] [address] [place] [address] PCP - General Pediatrics - Primary Care 02/13/21 documented as of this encounter
--- OUTSIDE RECORDS SUMMARY | 2024-01-09 19:28 | XMS_ITS | Encounter Summary ---
Author Organization [facility] Address [address] [place] [address] Care Team Providers Care Information Technology Instructor Name Role Phone Alondra Rosales MD Primary Care Provider [phone] Reason for Visit * Reason Comments Other toe walking Encounter Details Date Type Department Care Team (Late st Contact Info) Description 10/17/2009 14:20 EDT Office Visit [facility] Pediatric Orthopedics - [address] [place] [address] Serge Stinson MD Idiopathic toewalking (Primary Dx) Social History Tobacco Use Types Packs/Day Years Used Date Smoking Tobacco: Never Assessed Sex and Gender Information Value Date Recorded Sex Assigned at Not on file Gender Identity Not on file Sexual Orientation Not on file documented as of this encounter Progress Notes * Serge Stinson MD - 10/17/2009 1853 EDT S 4 y/o girl who continued to walk on her toes most of the time. She was seen in 05/21 and treated with physical therapy and has been doing well. She comes in for f/u because she continues to walk on her toes. O Gait shows that she walks on flatfeet today, but this was a staged type of gait. She easily can walk on her toes and heels. No pain or any other problems Both feet dorsiflex to 30 degrees today and plantarflex to 40 degrees. A Idiopathic toe walker P Discussed with mom that she will hopefully come down in Kindergarden.. documented in this encounter Plan of Treatment Not on file documented as of this encounter Visit Diagnoses Diagnosis Idiopathic toewalking- Primary Abnormality of gait documented in this encounter Care Teams Information Technology Instructor Relationship Specialty Start Date End Date Alondra Rosales MD [address] [place] [address] PCP - General 10/14/09 02/12/21 documented as of this encounter
--- OUTSIDE RECORDS SUMMARY | 2024-01-09 19:28 | XMS_ITS | Encounter Summary ---
Author Organization [facility] Address [address] [place] [address] Care Team Providers Care Color Control Supervisor Name Role Phone Eli Auguste MD Primary Care Provider Encounter Details Date Type Department Care Team (Late st Contact Info) Description 06/15/2021 Lab Requisition [facility] Pathology & Laboratory Medicine - [address] [address] Outr Resulting Lab, Provider Social History Tobacco [...] Comments CHLAMYDIA/N. GONORRHOEAE AMPLIFIED NUCLEIC ACID Routine 06/15/2021 13:55 EST documented in this encounter Results * CHLAMYDIA/N. GONORRHOEAE AMPLIFIED RNA (06/15/2021 13:55 EST) Neisseria gonorrhoeae Result Negative Negative 06/16/2021 18:04 EST [facility] Chlamydia trachomatis Result Negative Negative 06/16/2021 18:04 EST [facility] Swab ENTIRE VAGINA / Unknown 06/15/2021 13:55 EST 06/15/2021 21:32 EST Provider Outr Resulting Lab MICROBIOLOGY - GENERAL ORDERABLES [facility] [address] [place] [address] documented in this encounter Visit Diagnoses Not on filedocumented in this encounter Care Teams Color Control Supervisor Relationship Specialty Start Date End Date Eli Auguste MD [address] [place] [address] [place] [phone] PCP - General Pediatrics - Primary Care 02/13/21 documented as of this encounter
--- OUTSIDE RECORDS SUMMARY | 2024-01-09 19:28 | XMS_ITS | Encounter Summary ---
Author Organization [facility] Address [address] [place] [address] Care Team Providers Care Calenderer Name Role Phone Unavailable Primary Care Provider Unavailabl e Encounter Details Date Type Department Care Team (Late st Contact Info) Description 06/11/2008 Before PRISM Converted Visit (Maple) [facility] conversion [address] [place] [address] Serge Stinson MD Social History Tobacco Use Types Packs/Day Years Used Date Smoking Tobacco: Never Assessed Sex and Gender Information Value Date Recorded Sex Assigned at Not on file Gender Identity Not on file Sexual Orientation Not on file documented as of this encounter Consult Notes * Serge Stinson MD - 12/04/2008 0223 EDT [facility] CONSULTATION - 06/11/2008 Alondra Rosales M.D. [facility] [address] [place] [address] Rosales: [facility]. We were asked to consult on her because of walking on her toes and the left leg being longer than the right. Jocelyn is now 3 years of age and was noted by the family to first begin walking on her toes over the last one to two years. She has been walking on her toes, but seems to be slightly improving over the last 6 to 12 months. She has otherwise been doing satisfactory and there are no other particularconcerns. Mom has also noted apparently that the left leg is slightly longer than the right. In reviewing her past medical history, there have not been any major illnesses. She has had no prior operations. She is not taking any medications. She has no known allergies and no known drug allergies. The and developmental history reveals that Jocelyn was born after a full 40-week gestation toa 1 para 0 AB 0 mom. She was born at [facility] with a weight 6 pounds and 9 ounces and her development has been satisfactory. On physical exam today, in observing her gait, she ambulates with a toe-toe gait pattern bilaterally. She will occasionally come down to flat-foot gait pattern when she tries. She is also able to stand with both feet plantar grade without any difficulty. In observing her limb lengths, the left femur appears to be approximately equal to the right. The left tibia appears approximately 8 mm long. We believe thatthe limb lengths are certainly within normal limits at this stage. In observing her gait, she does ambulate on her toes and we are optimistic that this may improve over the next one totwo years. We did give mom a prescription to work with physical therapy to work on heel quad stretching exercises as well as foot strengthening exercises to see if that would help Jocelyn begin walking in more of a heel-toe gait pattern. If her symptoms gradually resolve over the next 6 to 12 months then we would not believe she would benefit from any further orthopedic intervention. Thank you for asking us to consult on Jocelyn for her toe-walking and please do not hesitate to contact me should you have questions. Sincerely yours, Signed by Serge Stinson MD 06/21/2008 18:12 Serge Stinson MD [address] [place] [address] - Serge Stinson MD - [facility] Job ID: [id number] Doc ID: [id number] cc: Alondra Rosales MD documented in this encounter Plan of Treatment Not on file documented as of this encounter Visit Diagnoses Not on filedocumented in this encounter
--- OUTSIDE RECORDS SUMMARY | 2024-01-09 19:28 | XMS_ITS | Encounter Summary ---
Author Organization [facility] Address [address] [place] [address] Care Team Providers Care Elevated Work Platform Operator Name Role Phone Alondra Rosales MD Primary Care Provider [phone] Eli Auguste MD Primary Care Provider [phone] Encounter Details Date Type Department Care Team (Late st Contact Info) Description 01/02/2021 Lab Requisition [facility] Pathology & Laboratory Medicine - [address] [address] Outr Resulting Lab, Provider Social History Tobacco [...] Priority Date/Time Associated Diagnosis Comments ZZCOVID-19 TEST [facility] LAB PCR Today 01/02/2021 16:25 EDT COVID-19 TESTING Routine 01/02/2021 16:2 5 EDT documented in this encounter Results * COVID-19 TEST [facility] PCR (01/02/2021 16:25 EDT) Swab ENTIRE NASOPHARYNX / Unknown 01/02/2021 16:25 EDT 01/02/2021 21:25 EDT Provider Outr Resulting Lab MICROBIOLOGY - GENERAL ORDERABLES [facility] [address] [place] [address] * (ABNORMAL) COVID-19 TESTING (01/02/2021 16:25 EDT) COVID-19 rt-PCR Result Positive( AA) Negative 01/03/2021 14:16 EDT [facility] Comment: This test has [...] the authorization is terminated or revoked sooner. Testing was performed using the jameel SARS-CoV-2 assay ([employer] on the Jameel 6800 System Performing Lab Jameel [address] [facility] Lab 01/03/2021 14:16 EDT [facility] Swab 01/02/2021 16:2 5 EDT 01/02/2021 21:25 EDT Provider Outr Resulting Lab MICROBIOLOGY - GENERAL ORDERABLES [facility] [address] [place] [address] documented in this encounter Visit Diagnoses Not on filedocumented in this encounter Additional Health Concerns Infection Onset Date Last Indicated Resolved Time COVID-19 01/02/2021 01/02/2021 02/01/2021 22:1 5 EDT documented as of this encounter Care Teams Elevated Work Platform Operator Relationship Specialty Start Date End Date Alondra Rosales MD [address] [place] [address] PCP - General 10/14/09 02/12/21 Eli Auguste MD [address] [place] [phone] PCP - General Pediatrics - Primary Care 02/13/21 documented as of this encounter
--- OUTSIDE RECORDS SUMMARY | 2024-01-09 19:28 | XMS_ITS | Encounter Summary ---
Author Organization [facility] Address [address] [place] [address] Care Team Providers Care Cryogenic Transport Driver Name Role Phone Unavailable Primary Care Provider Unavailabl e Encounter Details Date Type Department Care Team (Latest Contact Info) Description 06/11/2008 14:10 EST Hospital Encounter [facility] conversion [address] [place] [address] Serge Stinson MD Discharge Disposition: Auto Discharge Social History Tobacco Use Types Packs/Day Years Used Date Smoking Tobacco: Never Assessed Sex and Gender Information Value Date Recorded Sex Assigned at Not on file Gender Identity Not on file Sexual Orientation Not on file documented as of this encounter Discharge Disposition Disposition Code Departure Means Destination Auto Discharge documented in this encounter Plan of Treatment Not on file documented as of this encounter Visit Diagnoses Not on filedocumented in this encounter
--- OUTSIDE RECORDS SUMMARY | 2024-01-09 19:28 | XMS_ITS | Encounter Summary ---
Author Organization [facility] Address [address] [place] [address] Care Team Providers Care Asphalt Mixer Name Role Phone Eli Auguste MD Primary Care Provider Encounter Details Date Type Department Care Team (Late st Contact Info) Description 11/09/2021 Lab Requisition [facility] Pathology & Laboratory Medicine - [address] [id number] Outr Resulting Lab, Provider Social History Tobacco [...] Comments CHLAMYDIA/N. GONORRHOEAE AMPLIFIED NUCLEIC ACID Routine 11/09/2021 15:37 EDT documented in this encounter Results * CHLAMYDIA/N. GONORRHOEAE AMPLIFIED RNA (11/09/2021 15:37 EDT) Neisseria gonorrhoeae Result Negative Negative 11/10/2021 15:09 EDT [facility] Chlamydia trachomatis Result Negative Negative 11/10/2021 15:09 EDT [facility] Swab ENTIRE VAGINA / Unknown 11/09/2021 15:37 EDT 11/09/2021 21:50 EDT Provider Outr Resulting Lab MICROBIOLOGY - GENERAL ORDERABLES [facility] [address] [place] [address] documented in this encounter Visit Diagnoses Not on filedocumented in this encounter Care Teams Asphalt Mixer Relationship Specialty Start Date End Date Eli Auguste MD [address] [place] [address] [place] [phone] PCP - General Pediatrics - Primary Care 02/13/21 documented as of this encounter
--- OUTSIDE RECORDS SUMMARY | 2024-01-09 19:28 | XMS_ITS | Encounter Summary ---
Author Organization [facility] Address [address] [place] [address] Care Team Providers Care Electric Brain Wave Equipment Mechanic Name Role Phone Eli Auguste MD Primary Care Provider Encounter Details Date Type Department Care Team (Late st Contact Info) Description 05/17/2021 Lab Requisition [facility] Pathology & Laboratory Medicine - [address] [address] Outr Resulting Lab, Provider Social History Tobacco [...] Priority Date/Time Associated Diagnosis Comments ZZCOVID-19 TEST [facility] PCR Today 05/17/2021 11:44 EST COVID-19 TESTING Routine 05/17/2021 11:4 4 EST documented in this encounter Results * COVID-[address] [facility] (05/17/2021 11:44 EST) Swab 05/17/2021 11:4 4 EST 05/17/2021 21:12 EST Provider Outr Resulting Lab MICROBIOLOGY - GENERAL ORDERABLES [facility] [address] [place] [address] * COVID-19 TESTING (05/17/2021 11:44 EST) COVID-19 rt-PCR Result Negative Negative 05/18/2021 19:11 EST [facility] Comment: This test has [...] was performed using the candie SARS-CoV-2 assay ([employer] on the Candie 6800 System Performing Lab Candie [address] [facility] Lab 05/18/2021 19:11 EST [facility] Swab 05/17/2021 11:4 4 EST 05/17/2021 21:12 EST Provider Outr Resulting Lab MICROBIOLOGY - GENERAL ORDERABLES [facility] [address] [place] [address] documented in this encounter Visit Diagnoses Not on filedocumented in this encounter Care Teams Electric Brain Wave Equipment Mechanic Relationship Specialty Start Date End Date Eli Auguste MD [address] [place] [address] [place] [address] PCP - General Pediatrics - Primary Care 02/13/21 documented as of this encounter
--- OUTSIDE RECORDS SUMMARY | 2024-01-09 19:28 | XMS_ITS | Encounter Summary ---
Author Organization [facility] Address [address] [place] [address] Care Team Providers Care Polymerization Helper Name Role Phone Eli Auguste MD Primary Care Provider [phone] Encounter Details Date Type Department Care Team (Late st Contact Info) Description 06/13/2023 Lab Requisition [facility] Pathology & Laboratory Medicine - [address] [address] Outr Resulting Lab, Provider Social History Tobacco Use Types Packs/Day Years Used Date Smoking Tobacco: Never Sex and Gender Information Value Date Recorded Sex Assigned at Not on file Gender Identity Not on file Sexual Orientation Not on file documented as of this encounter Plan of Treatment Not on file documented as of this encounter Procedures Procedure Name Priority Date/Time Associated Diagnosis Comments VITAMIN D (25,OH) Routine 06/13/2023 12: 25 EST documented in this encounter Results * (ABNORMAL) VITAMIN D (25,OH) (06/13/2023 12:25 EST) 25OH Vitamin D Tot 28(L) 30 - 100 ng/mL 06/14/2023 10:[address] [facility] Comment: Vitamin D 25,OH Interpretive Ranges: Deficiency: ??<10.0 ng/mL Insufficiency: ??10.0 - 30.0 ng/mL Sufficiency: ??30.0 - 100.0 ng/mL Toxicity: ??>100.0 ng/mL Blood VENOUS BLOOD / Unknown 06/13/2023 12:25 EST 06/13/2023 22:01 EST Provider Outr Resulting Lab CHEMISTRY & BLOOD GAS ORDERABLES [facility] [address] [place] [address] documented in this encounter Visit Diagnoses Not on filedocumented in this encounter Care Teams Polymerization Helper Relationship Specialty Start Date End Date Eli Auguste MD [address] [place] [address] [place] [phone] PCP - General Pediatrics - Primary Care 02/13/21 documented as of this encounter
[2024-01-09 21:30] LABS: Source Nasal/Nares
[2024-01-09 22:35] LABS: COVID-19 PCR Negative (Negative)
== END 2024-01-09 19:27 | disposition home or self-care (01) ==
LOC: LBN 19:26
PROVIDERS: PCP Family Medicine; Visit Provider Physician Assistant Medical
DX: R11.2 Nausea with vomiting, unspecified (principal); Z20.822 Contact with and (suspected) exposure to COVID-19
CPT/HCPCS: 80053; 83690; 87635; 85025

== ENCOUNTER 2024-01-28 07:23 | Day surgery (SDC) | payer MEDICAID, SELFPAY ==
[2024-01-28 08:03] VITALS: BP 105/65; PULSE 80; RESP 16; TEMP 36.4; O2SAT 99
== END 2024-01-28 07:24 | disposition home or self-care (01) ==
LOC: SUR 07:23
PROVIDERS: PCP Family Medicine; Visit Provider Otolaryngology
DX: Z53.29 Procedure and treatment not carried out because of patient's decision for other reasons (principal)